=== PATIENT | female | born 1995 | race Caucasian/White ===

== ENCOUNTER 2017-06-17 17:29 | Emergency (ER) | payer OTHER ==
[~2017-06-17] VITALS: Ht 154.9 cm; Wt 55.2 kg
[2017-06-17 17:31] VITALS: Ht 154.9 cm; Wt 55.2 kg
[2017-06-17] MEDS ORDERED: ACET500C5 PO (18:51)
--- NOTE | 2017-06-17 18:53 | ERD ---
ER Documentation Chief Complaint Chief Complaint fever , cough , vomiting x 2 days HPI 21-year-old female is complaining of vomiting and diarrhea 2 days. Patient stated that she had multiple episodes of vomiting today, but able to drink water. The vomit is nonbloody nonbilious. Her last episode was 1-2 hours ago. She also has nonbloody diarrhea, 2 episodes today. Patient reports intermittent abdominal pain, usually occurs while she is vomiting. Her mother stated that patient had tactile fever earlier today. She did not take any medications at home. Denies cough or shortness of breath. ROS All systems reviewed and are negative except as per history of present illness. Allergies Allergies: Coded Allergies: No Known Allergy (Unverified , 06/17/17) PMhx/Soc Medical and Surgical Hx: pt denies Medical Hx, pt denies Surgical Hx Hx Alcohol Use: No Hx Substance Use: No Hx Tobacco Use: No Smoking Status: Never smoker Physical Exam Vitals Vital Signs Date Time Temp Pulse Resp B/P Pulse Ox O2 Delivery O2 Flow Rate FiO2 06/17/17 17:31 98.9 102 18 145/89 97 Physical Exam General: Well-developed, well-nourished, conscious and coherent, in no distress Skin: Warm and dry without rash, good texture and turgor Head: Normocephalic without evidence of trauma Eyes: Sclera and conjunctivae normal; pupils equal, round, and reactive to light; extraocular movements are intact Neck: Supple without meningismus or adenopathy. Carotids are equal. Trachea midline. No bruits or JVD Chest: Normal AP diameter. Good expansion without retractions. Nontender. Lungs are clear to auscultate bilaterally with good tidal volume Heart: Regular rate and rhythm. No murmur, rub, or gallops heard Abdomen: Soft, suprapubic tenderness without masses, guarding, or rebound. Bowel sounds are active. No hepatosplenomegaly Back: Without spinal or CVA tenderness Pelvis: Nontender to palpation and stable to compression Extremities: Full range of motion. Good strength bilaterally. No clubbing, cyanosis, or edema. Peripheral pulses are intact. Sensation intact Neuro: Alert and oriented 4, GCS 15. Cranial nerves grossly intact. Motor and sensory exams nonfocal. Moves all extremities. Speech clear. Gait normal Procedures/MDM Patient is afebrile, does not have any right upper or right lower quadrant tenderness on palpation. I doubt acute appendicitis, cholecystitis or other acute abdomen. Patient's symptoms is consistent with that of viral gastroenteritis. Patient does not have any active vomiting, is able to maintain by mouth fluid intake. Patient appears well, stable for discharge and outpatient management. Medical decision making shared with patient and family. Education provided to patient and family. Patient and family expressed understanding of the plan. Medications on discharge: Tylenol. Follow-up: Primary care provider in 2-3 days or return to ED if worse. Disclaimer: Inadvertent spelling and grammatical errors are likely due to EHR/ dictation software use and do not reflect on the overall quality of patient care. Also, please note that the electronic time recorded on this note does not necessarily reflect the actual time of the patient encounter. Departure Diagnosis: Primary Impression: Viral gastroenteritis Condition: Stable Patient Instructions: Gastroenteritis, Viral (8Y-Adult) Referrals: [facility] YOU HAVE RECEIVED A MEDICAL SCREENING EXAM AND THE RESULTS INDICATE THAT YOU DO NOT HAVE A CONDITION THAT REQUIRES URGENT TREATMENT IN THE EMERGENCY DEPARTMENT. FURTHER EVALUATION AND TREATMENT OF YOUR CONDITION CAN WAIT UNTIL YOU ARE SEEN IN YOUR DOCTORS OFFICE WITHIN THE NEXT 1-2 DAYS. IT IS YOUR RESPONSIBILITY TO MAKE AN APPOINTMENT FOR FOLOW-UP CARE. IF YOU HAVE A PRIMARY DOCTOR --you should call your primary doctor and schedule an appointment IF YOU DO NOT HAVE A PRIMARY DOCTOR YOU CAN CALL OUR PHYSICIAN REFERRAL HOTLINE AT IF YOU CAN NOT AFFORD TO SEE A PHYSICIAN YOU CAN CHOSE FROM THE FOLLOWING [facility] [address] [facility]. [facility] [address] [facility]. [facility] [address] [facility] [facility] [address] [facility] [facility] [address] [facility]. [facility]. [address] Additional Instructions: Call your primary care doctor TOMORROW for an appointment during the next 2-3 days.See the doctor sooner or return here if your condition worsens before your appointment time. HIMANSHU CRAIG NP Jun 17, 2017 18:53
[2017-06-17] MEDS ORDERED: ONDA4TAB14 PO (19:24)
[2017-06-17 19:25] VITALS: BP 130/80; PULSE 96; RESP 18; TEMP 98
== END 2017-06-17 19:26 | disposition home or self-care (01) ==
LOC: FTE 17:29
DX: A08.4 Viral intestinal infection, unspecified (principal)
CPT/HCPCS: 99283